=== PATIENT | female | born 1935 | race Caucasian/White ===

== ENCOUNTER 2017-03-16 09:37 | Emergency (ER) | payer MEDICARE, OTHER ==
[2017-03-16] MEDS ORDERED: ALPR0.25 (09:53)
[2017-03-16] MEDS ORDERED: NS 1,000 ML IV SCH (10:03)
[2017-03-16] MEDS ORDERED: NS 500 ML IV ONE (10:15)
[2017-03-16 10:38] LABS: BASO % 0.4 % (0.0-1.0); EOS # 0.1 K/mm3 (0.0-0.50); EOS % 1.4 % (0.0-3.0); LARGE UNSTAINED CELL # 0.1 K/mm3 (0.0-0.4); LARGE UNSTAINED CELL % 1.5 % (0.0-4.0); LYMPH % 21.8 % (24.0-44.0); MEAN CORPUSCULAR HGB CONC 33.6 g/dl (32.0-36.5); MEAN CORPUSCULAR VOLUME 92.2 fl (80.0-96.0); MONO # 0.4 K/mm3 (0.0-0.8); MONO % 4.8 % (0.0-5.0); NEUTROPHILS # 6.5 K/mm3 (1.8-7.7); NEUTROPHILS % 70.1 % (36.0-66.0); PLATELET COUNT, AUTOMATED 307 k/mm3 (150-450); RED CELL DISTRIBUTION WIDTH 13.5 % (11.5-14.5); WHITE BLOOD COUNT 9.3 K/mm3 (4.0-10.0)
[2017-03-16 11:04] LABS: ALBUMIN 3.6 GM/DL (3.2-5.2); ALBUMIN/GLOBULIN RATIO 0.97 (1.00-1.93); ALKALINE PHOSPHATASE 108 U/L (45-117); ALT/SGPT 22 U/L (12-78); ANION GAP 8 MEQ/L (8-16); AST/SGOT 14 U/L (15-37); BILIRUBIN,DIRECT 0.1 MG/DL (0.0-0.2); BILIRUBIN,TOTAL 0.6 MG/DL (0.2-1.0); BLOOD UREA NITROGEN 5 MG/DL (7-18); CALCIUM LEVEL 8.7 MG/DL (8.8-10.2); CARBON DIOXIDE LEVEL 27 MEQ/L (21-32); CHLORIDE LEVEL 107 MEQ/L (98-107); CREATININE FOR GFR 0.57 MG/DL (0.55-1.02); GLOMERULAR FILTRATION RATE > 60.0 (>32); GLUCOSE, FASTING 92 MG/DL (83-110); SODIUM LEVEL 142 MEQ/L (136-145); TOTAL PROTEIN 7.3 GM/DL (6.4-8.2)
[2017-03-16 11:31] VITALS: BP 141/81
--- NOTE | 2017-03-16 11:45 | REP ---
ABDOMINAL SERIES: Three views. HISTORY: Abdominal pain. COMPARISON STUDY: June 04, 2007 FINDINGS: Upright chest radiograph demonstrates EKG monitoring electrodes. Heart is not enlarged. The aorta is calcific and a little tortuous. Pleural angles are sharp. No infiltrate is seen. No free subdiaphragmatic air is seen. Supine and erect views of the abdomen show two or three right colonic air fluid levels. There is some air in the rectum and in the left colon. There are air-filled nondilated loops of small bowel in the central abdomen. These are nonspecific. Vascular calcification is noted. There is diffuse osteopenia. No mass organomegaly is seen. IMPRESSION: Nonspecific small bowel loops in the central abdomen. Right colonic air fluid levels. No evidence of obstruction. Question ileus versus enteritis. Signed by Brian Raphael MD 03/16/2017 02:06 P
--- NOTE | 2017-03-16 15:15 | ECGEPIP ---
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
== END 2017-03-16 12:08 | disposition home or self-care (01) ==
LOC: EDBD 09:37 → M ED 11:14
DX: R19.7 Diarrhea, unspecified (principal); E86.0 Dehydration; Z79.899 Other long term (current) drug therapy; Z87.442 Personal history of urinary calculi; F41.9 Anxiety disorder, unspecified

== ENCOUNTER → 2022-02-17 | Outpatient (REF) | payer MEDICARE, OTHER ==
[~2022-02-17] MED LIST: ALPR0.25
[2022-02-17 18:39] LABS: PERCENT SATURATION 4.3 % (13.2-45.0)
== END ==
LOC: M LAB REF 17:01
PROVIDERS: ATTEND Nurse Practitioner Adult Health
DX: D64.9 Anemia, unspecified (principal)

== ENCOUNTER → 2023-04-05 | Outpatient (REF) | payer MEDICARE, OTHER ==
[~2023-04-05] MED LIST changes: +FERR325T3 PO; +PAXI30TA12 PO
== END ==
LOC: M LAB REF 16:10
PROVIDERS: ATTEND Internal Medicine
DX: N39.0 Urinary tract infection, site not specified (principal)

== ENCOUNTER 2023-05-12 10:55 | Inpatient (IN) | payer MEDICARE, OTHER ==
[~2023-05-12] VITALS: Ht 154.9 cm; Wt 57.3 kg
[2023-05-12] MEDS ORDERED: ONDANSETRON 4MG 2ML VIAL IV ONE (11:30)
[2023-05-12] MEDS ORDERED: NS 1,000 ML IV SCH (11:30)
[2023-05-12] MEDS ORDERED: MORPHINE 2 MG/ML 1ML VIAL IV ONE (11:30)
[2023-05-12 11:58] LABS: VENOUS BASE EXCESS -4.7 (-2.0-2.0); VENOUS HCO3 18.6 MMOL/L (23.0-27.0); VENOUS O2 SATURATION 97.3 % (60.0-80.0); VENOUS PARTIAL PRESSURE CO2 27.5 mmHg (38.0-50.0); VENOUS PARTIAL PRESSURE O2 93.6 mmHg (30.0-50.0); VENOUS PH 7.447 UNITS (7.330-7.430); VENOUS STANDARD HCO3 20.6 MMOL/L; VENOUS TOTAL CO2 19.4 MMOL/L (24.0-28.0)
[2023-05-12 12:14] LABS: BASO % 0.1 % (0.0-1.0); HEMATOCRIT 24.8 % (36.0-47.0); HEMOGLOBIN 7.8 g/dl (12.0-15.5); LYMPH % 6.2 % (24.0-44.0); MEAN CORPUSCULAR HEMOGLOBIN 24.3 pg (27.0-33.0); MEAN CORPUSCULAR HGB CONC 31.5 g/dl (32.0-36.5); MEAN CORPUSCULAR VOLUME 77.3 fl (80.0-96.0); MONO # 0.9 10^3/uL (0.0-0.8); MONO % 5.5 % (2.0-8.0); NEUTROPHILS % 87.6 % (36.0-66.0); PLATELET COUNT, AUTOMATED 383 10^3/uL (150-450); RED BLOOD COUNT 3.21 10^6/uL (4.00-5.40); WHITE BLOOD COUNT 15.9 10^3/uL (4.0-10.0)
[2023-05-12 12:34] LABS: ALBUMIN 3.3 G/DL (3.2-5.2); ALKALINE PHOSPHATASE 94 U/L (46-116); ALT/SGPT 20 U/L (7.0-40); AST/SGOT 52 U/L (<34); BILIRUBIN,DIRECT 0.3 MG/DL (<0.4); BILIRUBIN,TOTAL 0.8 MG/DL (0.3-1.2); BLOOD UREA NITROGEN 20 MG/DL (9-23); CALCIUM LEVEL 8.9 MG/DL (8.3-10.6); CARBON DIOXIDE LEVEL 23 MMOL/L (20-31); CHLORIDE LEVEL 103 MMOL/L (98-107); CREATININE FOR GFR 0.38 MG/DL (0.55-1.30); GLOMERULAR FILTRATION RATE > 60.0 (>32); GLUCOSE, FASTING 116 MG/DL (74-106); SODIUM LEVEL 136 MMOL/L (136-145); TOTAL PROTEIN 6.3 G/DL (5.7-8.2)
[2023-05-12 12:36] LABS: THYROID STIMULATING HORMONE 1.397 uIU/ML (0.55-4.78)
[2023-05-12 13:08] LABS: OSMOLALITY SERUM 284 MOSM/KG (280-301)
[2023-05-12] MEDS ORDERED: MED REC IN PROGRESS XX SCH (17:20)
[2023-05-12 17:37] LABS: CPK CREATINE PHOSPHOKINASE 1669 U/L (34-145)
[2023-05-12] MEDS ORDERED: HOME MED LIST COMPLETE! XX SCH (17:40)
[2023-05-12] MEDS ORDERED: ALIG4CAP PO (17:40)
[2023-05-12] MEDS ORDERED: MIRT1TAB PO (17:40)
[2023-05-12] MEDS ORDERED: MELA10CA PO (17:40)
[2023-05-12] MEDS ORDERED: ACETAMINOPHEN 650MG SUPP PR ONE (18:50)
[2023-05-12] MEDS ORDERED: ONDANSETRON 4MG 2ML VIAL IV PRN (20:35)
[2023-05-12] MEDS: LR 1,000 ML IV SCH (22:38)
[2023-05-12] MEDS: HEPARIN SOD (PORCINE) 5000UNITS/ML 1ML VIAL/SYRINGE SC SCH (22:38)
[2023-05-13] VITALS (12 sets, daily range): BP systolic 107–136; BP diastolic 40–62; TEMP 96.9–98.9; O2SAT 93–98
[2023-05-13] MEDS: HYDROMORPHONE HCL 0.5 MG/ 0.5 ML SYRINGE IV PRN (02:15)
[2023-05-13] MEDS: LR 1,000 ML IV SCH ×2 (05:46→15:16)
[2023-05-13 07:20] LABS: BLOOD UREA NITROGEN 15 MG/DL (9-23); CARBON DIOXIDE LEVEL 23 MMOL/L (20-31); CHLORIDE LEVEL 108 MMOL/L (98-107); CREATININE FOR GFR 0.37 MG/DL (0.55-1.30); GLOMERULAR FILTRATION RATE > 60.0 (>32); GLUCOSE, FASTING 103 MG/DL (74-106); POTASSIUM SERUM 3.4 MMOL/L (3.5-5.1); SODIUM LEVEL 141 MMOL/L (136-145)
[2023-05-13] MEDS ORDERED: POTASSIUM CHLORIDE 10MEQ SR TABLET PO ONE (07:35)
[2023-05-13 07:56] LABS: BASO % 0.2 % (0.0-1.0); EOS % 0.1 % (0.0-3.0); LYMPH # 1.6 10^3/uL (1.5-5.0); LYMPH % 10.5 % (24.0-44.0); MEAN CORPUSCULAR HEMOGLOBIN 24.2 pg (27.0-33.0); MEAN CORPUSCULAR HGB CONC 30.8 g/dl (32.0-36.5); MEAN CORPUSCULAR VOLUME 78.5 fl (80.0-96.0); MONO # 1.5 10^3/uL (0.0-0.8); MONO % 9.9 % (2.0-8.0); NEUTROPHILS # 12.1 10^3/uL (1.5-8.5); NEUTROPHILS % 78.8 % (36.0-66.0); PLATELET COUNT, AUTOMATED 340 10^3/uL (150-450); RED BLOOD COUNT 2.65 10^6/uL (4.00-5.40); WHITE BLOOD COUNT 15.3 10^3/uL (4.0-10.0)
[2023-05-13 08:05] LABS: HEMATOCRIT 20.8 % (36.0-47.0); HEMOGLOBIN 6.4 g/dl (12.0-15.5)
[2023-05-13] MEDS ORDERED: MEPERIDINE 25 MG/ML 1ML VIAL IV PRN ×2 (08:05→16:25)
[2023-05-13] MEDS ORDERED: ONDANSETRON 4MG 2ML VIAL IV PRN ×2 (08:05→16:25)
[2023-05-13] MEDS ORDERED: oxyCODONE 5MG TAB PO PRN ×2 (08:05→16:25)
[2023-05-13] MEDS ORDERED: HYDROMORPHONE HCL 0.5 MG/ 0.5 ML SYRINGE IV PRN ×2 (08:05→16:25)
[2023-05-13] MEDS ORDERED: LR 1,000 ML IV SCH ×2 (08:05→16:25)
[2023-05-13] MEDS ORDERED: fentaNYL 100 MCG/2 ML INJECTION IV PRN ×2 (08:05→16:25)
[2023-05-13 08:15] LABS: CPK CREATINE PHOSPHOKINASE 2621 U/L (34-145)
[2023-05-13] MEDS: HEPARIN SOD (PORCINE) 5000UNITS/ML 1ML VIAL/SYRINGE SC SCH ×2 (09:00→22:23)
[2023-05-13 09:49] LABS: IRON (FE) 13 UG/DL (50-170); PERCENT SATURATION 4.2 % (13.2-45.0); TOTAL IRON BINDING CAPACITY 313 UG/DL (250-425)
[2023-05-13 09:52] LABS: FERRITIN 18.7 NG/ML (7.3-270.7); FOLATE 14.1 NG/ML (>5.4); VITAMIN B12 LEVEL 321 PG/ML (211-911)
[2023-05-13] MEDS: PARoxetine 10MG TABLET PO SCH (11:23)
[2023-05-13 15:53] LABS: HEMATOCRIT 25.8 % (36.0-47.0); HEMOGLOBIN 8.1 g/dl (12.0-15.5)
[2023-05-13] MEDS ORDERED: TRANEXAMIC ACID 100 MG/ML 10ML VIAL As Ordered ONE (16:27)
[2023-05-13] MEDS ORDERED: ceFAZolin 2 GM/D5W 50 ML IV BAG As Ordered ONE (16:28)
[2023-05-13] MEDS ORDERED: LIDOCAINE 2% 100MG/5ML SDV (FOR ANES.) As Ordered ONE (17:22)
[2023-05-13] MEDS ORDERED: propofoL 200 MG/20 ML VIAL As Ordered ONE (17:22)
[2023-05-13] MEDS ORDERED: GLYCOPYRROLATE INJ 0.2 MG/ML 2 ML VIAL As Ordered ONE (17:22)
[2023-05-13] MEDS ORDERED: ONDANSETRON 4MG 2ML VIAL As Ordered ONE (17:22)
[2023-05-13] MEDS ORDERED: fentaNYL 100 MCG/2 ML INJECTION As Ordered ONE ×2 (17:25→18:25)
[2023-05-13] MEDS ORDERED: ROCURONIUM BROMIDE 50MG/5ML VIAL As Ordered ONE (17:46)
[2023-05-13] MEDS ORDERED: ACETAMINOPHEN 1000MG 100ML IV BAG As Ordered ONE (18:07)
[2023-05-13] MEDS ORDERED: VANCOMYCIN 1000MG/20ML VIAL As Ordered ONE (19:25)
[2023-05-13] MEDS: NICOTINE 14 MG/24 HR TRANSDERMAL TD SCH (22:22)
[2023-05-14] VITALS (13 sets, daily range): BP systolic 101–127; BP diastolic 53–61; TEMP 96.6–99.9; O2SAT 93–98
[2023-05-14] MEDS: LR 1,000 ML IV SCH ×4 (04:16→21:15)
[2023-05-14 05:17] LABS: BASO % 0.1 % (0.0-1.0); HEMATOCRIT 22.5 % (36.0-47.0); LYMPH # 1.4 10^3/uL (1.5-5.0); LYMPH % 8.1 % (24.0-44.0); MEAN CORPUSCULAR HEMOGLOBIN 25.4 pg (27.0-33.0); MEAN CORPUSCULAR HGB CONC 31.1 g/dl (32.0-36.5); MEAN CORPUSCULAR VOLUME 81.5 fl (80.0-96.0); MONO # 1.1 10^3/uL (0.0-0.8); MONO % 6.4 % (2.0-8.0); NEUTROPHILS # 14.3 10^3/uL (1.5-8.5); NEUTROPHILS % 84.9 % (36.0-66.0); PLATELET COUNT, AUTOMATED 293 10^3/uL (150-450); RED BLOOD COUNT 2.76 10^6/uL (4.00-5.40); WHITE BLOOD COUNT 16.9 10^3/uL (4.0-10.0)
[2023-05-14] MEDS: ceFAZolin SOD 2 GM in IV 1 EA IV SCH ×3 (05:47→20:13)
[2023-05-14 05:49] LABS: BLOOD UREA NITROGEN 17 MG/DL (9-23); CALCIUM LEVEL 7.8 MG/DL (8.3-10.6); CARBON DIOXIDE LEVEL 25 MMOL/L (20-31); CHLORIDE LEVEL 108 MMOL/L (98-107); CPK CREATINE PHOSPHOKINASE 3045 U/L (34-145); CREATININE FOR GFR 0.44 MG/DL (0.55-1.30); GLOMERULAR FILTRATION RATE > 60.0 (>32); GLUCOSE, FASTING 105 MG/DL (74-106); MAGNESIUM LEVEL 1.8 MG/DL (1.8-2.4); POTASSIUM SERUM 4.5 MMOL/L (3.5-5.1); SODIUM LEVEL 139 MMOL/L (136-145)
[2023-05-14] MEDS: HEPARIN SOD (PORCINE) 5000UNITS/ML 1ML VIAL/SYRINGE SC SCH ×2 (09:00→19:16)
[2023-05-14] MEDS: FERROUS SULFATE 325MG TAB PO SCH (09:59)
[2023-05-14] MEDS: PARoxetine 10MG TABLET PO SCH (09:59)
[2023-05-14] MEDS: NICOTINE 14 MG/24 HR TRANSDERMAL TD SCH (09:59)
[2023-05-14] MEDS: HYDROMORPHONE HCL 0.5 MG/ 0.5 ML SYRINGE IV PRN (13:15)
[2023-05-14 14:23] LABS: HEMATOCRIT 23.9 % (36.0-47.0); HEMOGLOBIN 7.7 g/dl (12.0-15.5)
[2023-05-14] MEDS: ACETAMINOPHEN TAB 650MG DOSE (2X325MG) PO PRN (20:15)
[2023-05-15 04:02] VITALS: BP 109/57; TEMP 97.2; O2SAT 97
[2023-05-15] MEDS: LR 1,000 ML IV SCH (04:44)
[2023-05-15 06:23] LABS: BASO % 0.3 % (0.0-1.0); EOS # 0.1 10^3/uL (0.0-0.5); EOS % 0.7 % (0.0-3.0); HEMATOCRIT 23.1 % (36.0-47.0); HEMOGLOBIN 7.3 g/dl (12.0-15.5); LYMPH # 2.2 10^3/uL (1.5-5.0); LYMPH % 18.5 % (24.0-44.0); MEAN CORPUSCULAR HEMOGLOBIN 25.8 pg (27.0-33.0); MEAN CORPUSCULAR HGB CONC 31.6 g/dl (32.0-36.5); MEAN CORPUSCULAR VOLUME 81.6 fl (80.0-96.0); MONO % 8.2 % (2.0-8.0); NEUTROPHILS # 8.4 10^3/uL (1.5-8.5); NEUTROPHILS % 71.8 % (36.0-66.0); PLATELET COUNT, AUTOMATED 260 10^3/uL (150-450); RED BLOOD COUNT 2.83 10^6/uL (4.00-5.40); WHITE BLOOD COUNT 11.7 10^3/uL (4.0-10.0)
[2023-05-15 06:44] LABS: BLOOD UREA NITROGEN 10 MG/DL (9-23); CALCIUM LEVEL 7.5 MG/DL (8.3-10.6); CARBON DIOXIDE LEVEL 27 MMOL/L (20-31); CHLORIDE LEVEL 105 MMOL/L (98-107); CREATININE FOR GFR 0.35 MG/DL (0.55-1.30); GLOMERULAR FILTRATION RATE > 60.0 (>32); GLUCOSE, FASTING 89 MG/DL (74-106); MAGNESIUM LEVEL 1.5 MG/DL (1.8-2.4); POTASSIUM SERUM 3.7 MMOL/L (3.5-5.1); SODIUM LEVEL 140 MMOL/L (136-145)
[2023-05-15 06:56] LABS: CPK CREATINE PHOSPHOKINASE 1742 U/L (34-145)
[2023-05-15 07:50] VITALS: BP 111/55; TEMP 97.8; O2SAT 96
[2023-05-15] MEDS ORDERED: MAGNESIUM OXIDE 400MG TAB (MAG-OX) PO ONE (08:00)
[2023-05-15] MEDS: HEPARIN SOD (PORCINE) 5000UNITS/ML 1ML VIAL/SYRINGE SC SCH (08:49)
[2023-05-15] MEDS ORDERED: SENOKOT S TAB PO SCH (09:00)
[2023-05-15] MEDS ORDERED: FERR1TAB8 PO (10:23)
[2023-05-15 10:48] LABS: HEMATOCRIT 24.1 % (36.0-47.0); HEMOGLOBIN 7.8 g/dl (12.0-15.5)
[2023-05-15] MEDS: NICOTINE 14 MG/24 HR TRANSDERMAL TD SCH (10:48)
[2023-05-15] MEDS: FERROUS SULFATE 325MG TAB PO SCH (11:04)
[2023-05-15] MEDS: PARoxetine 10MG TABLET PO SCH (11:04)
[2023-05-15 11:18] VITALS: BP 107/59; TEMP 97.4
[2023-05-15] MEDS: ACETAMINOPHEN TAB 650MG DOSE (2X325MG) PO PRN (11:51)
== END 2023-05-15 12:01 | DRG 481 ==
LOC: EDBD 10:55 → M ED 10:55 → M ED INP 20:33 → M PCU 05-13 00:40
PROVIDERS: ADMIT Internal Medicine; ATTEND Family Medicine
PROC: 30233N1 Transfusion of Nonautologous Red Blood Cells into Peripheral Vein, Percutaneous Approach (ICD-10-PCS; 2023-05-13)
PROC: 0QS734Z Reposition Left Upper Femur with Internal Fixation Device, Percutaneous Approach (ICD-10-PCS; principal; 2023-05-13 13:00)
DX: S72.142A Displaced intertrochanteric fracture of left femur, initial encounter for closed fracture (principal); G93.40 Encephalopathy, unspecified; M62.82 Rhabdomyolysis; D62 Acute posthemorrhagic anemia; F03.90 Unspecified dementia, unspecified severity, without behavioral disturbance, psychotic disturbance, mood disturbance, and anxiety; F41.9 Anxiety disorder, unspecified; F32.A Depression, unspecified; Z79.899 Other long term (current) drug therapy; W18.30XA Fall on same level, unspecified, initial encounter; Y92.009 Unspecified place in unspecified non-institutional (private) residence as the place of occurrence of the external cause

== ENCOUNTER 2023-05-14 10:13 | Inpatient (IN) | payer MEDICARE ==
[~2023-05-14] VITALS: Ht 154.9 cm; Wt 46.3 kg
[~2023-05-14 10:13] MED LIST changes: +ALIG4CAP PO; +MELA10CA PO; +MIRT1TAB PO
[2023-05-15] MEDS ORDERED: FERR1TAB8 PO (10:23)
[2023-05-15 12:05] VITALS: BP 125/58; TEMP 98.6; O2SAT 94
[2023-05-15 14:00] VITALS: BP 130/62; TEMP 98.6; O2SAT 95
[2023-05-15] MEDS ORDERED: oxyCODONE 5MG TAB PO STA (14:57)
[2023-05-15] MEDS: ACETAMINOPHEN 500 MG TAB PO SCH ×2 (16:00→20:45)
[2023-05-15] MEDS ORDERED: BISACODYL 10MG SUPP PR PRN (16:05)
[2023-05-15] MEDS ORDERED: oxyCODONE 5MG TAB PO PRN (16:05)
[2023-05-15] MEDS ORDERED: ONDANSETRON 4MG TAB PO PRN (16:05)
[2023-05-15 20:00] VITALS: BP 112/58; TEMP 98.4; O2SAT 85
[2023-05-15 20:15] VITALS: O2SAT 93
[2023-05-15] MEDS: SENNA 8.6 MG TAB (SENOKOT) PO SCH (20:39)
[2023-05-15] MEDS: DOCUSATE SODIUM 100MG CAPSULE PO SCH (20:39)
[2023-05-15] MEDS: REMEDY PHYTOPLEX Z-GUARD PASTE 113GM TUBE (FROM STOREROOM PRODUCT) TOP SCH (20:45)
[2023-05-15] MEDS: DICLOFENAC EPOLAMINE 1.3% PATCH TOP SCH (20:45)
[2023-05-15] MEDS ORDERED: MIRTAZAPINE 7.5MG PER 1/2 TABLET PO SCH (21:00)
[2023-05-16 05:49] LABS: BASO % 0.3 % (0.0-1.0); EOS # 0.1 10^3/uL (0.0-0.5); EOS % 0.7 % (0.0-3.0); HEMATOCRIT 25.5 % (36.0-47.0); HEMOGLOBIN 8.1 g/dl (12.0-15.5); LYMPH # 1.9 10^3/uL (1.5-5.0); MEAN CORPUSCULAR HGB CONC 31.8 g/dl (32.0-36.5); MONO # 0.9 10^3/uL (0.0-0.8); MONO % 8.1 % (2.0-8.0); NEUTROPHILS # 8.2 10^3/uL (1.5-8.5); NEUTROPHILS % 73.2 % (36.0-66.0); PLATELET COUNT, AUTOMATED 311 10^3/uL (150-450); RED BLOOD COUNT 3.11 10^6/uL (4.00-5.40); WHITE BLOOD COUNT 11.1 10^3/uL (4.0-10.0)
[2023-05-16] MEDS: DICLOFENAC EPOLAMINE 1.3% PATCH TOP SCH ×2 (05:57→17:53)
[2023-05-16 06:00] VITALS: BP 130/85; TEMP 98; O2SAT 91
[2023-05-16 06:11] LABS: ALBUMIN 2.2 G/DL (3.2-5.2); ALKALINE PHOSPHATASE 70 U/L (46-116); ALT/SGPT 37 U/L (7.0-40); AST/SGOT 96 U/L (<34); BILIRUBIN,TOTAL 1.1 MG/DL (0.3-1.2); BLOOD UREA NITROGEN 6 MG/DL (9-23); CALCIUM LEVEL 7.5 MG/DL (8.3-10.6); CARBON DIOXIDE LEVEL 29 MMOL/L (20-31); CHLORIDE LEVEL 102 MMOL/L (98-107); CREATININE FOR GFR 0.34 MG/DL (0.55-1.30); GLOMERULAR FILTRATION RATE > 60.0 (>32); GLUCOSE, FASTING 87 MG/DL (74-106); POTASSIUM SERUM 3.6 MMOL/L (3.5-5.1); SODIUM LEVEL 139 MMOL/L (136-145); TOTAL PROTEIN 4.7 G/DL (5.7-8.2)
[2023-05-16] MEDS ORDERED: HOME MED LIST COMPLETE! XX SCH (07:35)
[2023-05-16] MEDS: NICOTINE 14 MG/24 HR TRANSDERMAL TD SCH (09:00)
[2023-05-16] MEDS: REMEDY PHYTOPLEX Z-GUARD PASTE 113GM TUBE (FROM STOREROOM PRODUCT) TOP SCH ×3 (09:00→21:00)
[2023-05-16] MEDS: FERROUS SULFATE 325MG TAB PO SCH (09:31)
[2023-05-16] MEDS: PARoxetine 10MG TABLET PO SCH (09:31)
[2023-05-16] MEDS: DOCUSATE SODIUM 100MG CAPSULE PO SCH ×2 (09:31→21:05)
[2023-05-16] MEDS: ENOXAPARIN 40MG/0.4ML SYRINGE (J1650 PER 10MG) SC SCH (09:32)
[2023-05-16] MEDS: ACETAMINOPHEN 500 MG TAB PO SCH ×3 (09:32→21:05)
[2023-05-16] MEDS: COMBIVENT RESPIMAT 100-20MCG INHALER 4GM INH SCH ×2 (13:07→20:16)
[2023-05-16 14:00] VITALS: BP 115/57; TEMP 98.3; O2SAT 90
[2023-05-16] MEDS ORDERED: oxyCODONE 5MG TAB PO PRN (15:15)
[2023-05-16] MEDS ORDERED: PILL CUTTER 1 EACH XX PRN (15:30)
[2023-05-16] MEDS: CEFEPIME HCL 2 GM in D5W MINI-BAG PLUS 50 ML IV SCH (16:41)
[2023-05-16] MEDS: LACTOBACILLUS ACIDOPHILUS CAP (BACID) PO SCH (17:53)
[2023-05-16 20:00] VITALS: BP 110/52; TEMP 99; O2SAT 91
[2023-05-16] MEDS: SENNA 8.6 MG TAB (SENOKOT) PO SCH (21:04)
[2023-05-17] MEDS: CEFEPIME HCL 2 GM in D5W MINI-BAG PLUS 50 ML IV SCH ×2 (00:17→09:07)
[2023-05-17 06:00] VITALS: BP 147/66; TEMP 98.1; O2SAT 91
[2023-05-17] MEDS: DICLOFENAC EPOLAMINE 1.3% PATCH TOP SCH ×2 (06:50→18:27)
[2023-05-17] MEDS: COMBIVENT RESPIMAT 100-20MCG INHALER 4GM INH SCH ×3 (07:00→19:48)
[2023-05-17 07:17] LABS: BASO % 0.2 % (0.0-1.0); EOS # 0.1 10^3/uL (0.0-0.5); HEMATOCRIT 25.2 % (36.0-47.0); HEMOGLOBIN 8.2 g/dl (12.0-15.5); LYMPH # 1.6 10^3/uL (1.5-5.0); LYMPH % 11.5 % (24.0-44.0); MEAN CORPUSCULAR HEMOGLOBIN 26.5 pg (27.0-33.0); MEAN CORPUSCULAR HGB CONC 32.5 g/dl (32.0-36.5); MEAN CORPUSCULAR VOLUME 81.3 fl (80.0-96.0); MONO % 6.9 % (2.0-8.0); NEUTROPHILS % 79.7 % (36.0-66.0); PLATELET COUNT, AUTOMATED 327 10^3/uL (150-450); WHITE BLOOD COUNT 13.8 10^3/uL (4.0-10.0)
[2023-05-17] MEDS: NICOTINE 14 MG/24 HR TRANSDERMAL TD SCH (09:00)
[2023-05-17] MEDS: DOCUSATE SODIUM 100MG CAPSULE PO SCH ×3 (09:00→20:21)
[2023-05-17] MEDS: REMEDY PHYTOPLEX Z-GUARD PASTE 113GM TUBE (FROM STOREROOM PRODUCT) TOP SCH ×3 (09:00→20:23)
[2023-05-17] MEDS: FERROUS SULFATE 325MG TAB PO SCH (09:07)
[2023-05-17] MEDS: LACTOBACILLUS ACIDOPHILUS CAP (BACID) PO SCH ×2 (09:08→18:26)
[2023-05-17] MEDS: PARoxetine 10MG TABLET PO SCH (09:08)
[2023-05-17] MEDS: ENOXAPARIN 40MG/0.4ML SYRINGE (J1650 PER 10MG) SC SCH (09:08)
[2023-05-17] MEDS: ACETAMINOPHEN 500 MG TAB PO SCH ×4 (09:08→23:08)
[2023-05-17] MEDS: LIDOCAINE 5% (LIDODERM) PATCH TD SCH (09:09)
[2023-05-17 14:00] VITALS: BP 127/61; TEMP 98.3; O2SAT 94
[2023-05-17] MEDS: PIPERACILLIN/TAZOBACTAM SOD 4.5 GM in D5W MINI-BAG PLUS 50 ML IV SCH ×2 (14:13→20:20)
[2023-05-17 20:00] VITALS: BP 123/60; TEMP 97.8; O2SAT 94
[2023-05-17] MEDS ORDERED: CEFEPIME HCL 2 GM in D5W MINI-BAG PLUS 50 ML IV SCH (20:00)
[2023-05-17] MEDS: SENNA 8.6 MG TAB (SENOKOT) PO SCH (20:22)
[2023-05-18] MEDS: PIPERACILLIN/TAZOBACTAM SOD 4.5 GM in D5W MINI-BAG PLUS 50 ML IV SCH ×4 (01:29→19:35)
[2023-05-18] MEDS: DICLOFENAC EPOLAMINE 1.3% PATCH TOP SCH ×2 (05:20→17:19)
[2023-05-18 05:52] LABS: BASO # 0.1 10^3/uL (0.0-0.2); BASO % 0.4 % (0.0-1.0); EOS # 0.3 10^3/uL (0.0-0.5); EOS % 2.6 % (0.0-3.0); HEMATOCRIT 26.1 % (36.0-47.0); HEMOGLOBIN 8.3 g/dl (12.0-15.5); LYMPH # 1.8 10^3/uL (1.5-5.0); LYMPH % 13.9 % (24.0-44.0); MEAN CORPUSCULAR HEMOGLOBIN 26.3 pg (27.0-33.0); MEAN CORPUSCULAR HGB CONC 31.8 g/dl (32.0-36.5); MEAN CORPUSCULAR VOLUME 82.6 fl (80.0-96.0); MONO % 7.7 % (2.0-8.0); NEUTROPHILS # 9.6 10^3/uL (1.5-8.5); NEUTROPHILS % 74.5 % (36.0-66.0); PLATELET COUNT, AUTOMATED 370 10^3/uL (150-450); RED BLOOD COUNT 3.16 10^6/uL (4.00-5.40); WHITE BLOOD COUNT 12.9 10^3/uL (4.0-10.0)
[2023-05-18 06:00] VITALS: BP 144/65; TEMP 97.7; O2SAT 94
[2023-05-18] MEDS: IBUPROFEN 400MG TAB PO PRN ×2 (06:17→14:58)
[2023-05-18 06:20] LABS: BLOOD UREA NITROGEN 8 MG/DL (9-23); CALCIUM LEVEL 7.5 MG/DL (8.3-10.6); CARBON DIOXIDE LEVEL 26 MMOL/L (20-31); CHLORIDE LEVEL 102 MMOL/L (98-107); CREATININE FOR GFR 0.38 MG/DL (0.55-1.30); GLOMERULAR FILTRATION RATE > 60.0 (>32); GLUCOSE, FASTING 91 MG/DL (74-106); POTASSIUM SERUM 3.3 MMOL/L (3.5-5.1); SODIUM LEVEL 137 MMOL/L (136-145)
[2023-05-18] MEDS: COMBIVENT RESPIMAT 100-20MCG INHALER 4GM INH SCH ×3 (06:53→19:21)
[2023-05-18] MEDS: REMEDY PHYTOPLEX Z-GUARD PASTE 113GM TUBE (FROM STOREROOM PRODUCT) TOP SCH ×3 (07:18→19:36)
[2023-05-18] MEDS: DOCUSATE SODIUM 100MG CAPSULE PO SCH ×2 (07:18→18:59)
[2023-05-18] MEDS: NICOTINE 14 MG/24 HR TRANSDERMAL TD SCH (07:18)
[2023-05-18] MEDS: ENOXAPARIN 40MG/0.4ML SYRINGE (J1650 PER 10MG) SC SCH (07:24)
[2023-05-18] MEDS: FERROUS SULFATE 325MG TAB PO SCH (07:24)
[2023-05-18] MEDS: LIDOCAINE 5% (LIDODERM) PATCH TD SCH (07:24)
[2023-05-18] MEDS: LACTOBACILLUS ACIDOPHILUS CAP (BACID) PO SCH ×2 (07:24→17:19)
[2023-05-18] MEDS: ACETAMINOPHEN 500 MG TAB PO SCH ×2 (07:24→19:34)
[2023-05-18] MEDS: MODAFINIL 100 MG TABLET PO SCH (07:25)
[2023-05-18] MEDS: PARoxetine 10MG TABLET PO SCH (07:25)
[2023-05-18] MEDS ORDERED: oxyCODONE 5MG TAB PO ONE (09:45)
[2023-05-18 14:00] VITALS: BP 122/57; TEMP 98.5; O2SAT 97
[2023-05-18] MEDS: SENNA 8.6 MG TAB (SENOKOT) PO SCH (18:59)
[2023-05-18 20:00] VITALS: BP 142/64; TEMP 98.2; O2SAT 94
[2023-05-19] MEDS: PIPERACILLIN/TAZOBACTAM SOD 4.5 GM in D5W MINI-BAG PLUS 50 ML IV SCH ×4 (01:31→19:32)
[2023-05-19] MEDS: DICLOFENAC EPOLAMINE 1.3% PATCH TOP SCH ×2 (05:26→17:05)
[2023-05-19 06:00] VITALS: BP 152/66; TEMP 98.1; O2SAT 93
[2023-05-19] MEDS: DOCUSATE SODIUM 100MG CAPSULE PO SCH ×2 (08:09→18:57)
[2023-05-19] MEDS: PARoxetine 10MG TABLET PO SCH (08:16)
[2023-05-19] MEDS: MODAFINIL 100 MG TABLET PO SCH (08:16)
[2023-05-19] MEDS: ACETAMINOPHEN 500 MG TAB PO SCH ×3 (08:16→19:32)
[2023-05-19] MEDS: LACTOBACILLUS ACIDOPHILUS CAP (BACID) PO SCH ×2 (08:16→17:05)
[2023-05-19] MEDS: LIDOCAINE 5% (LIDODERM) PATCH TD SCH (08:17)
[2023-05-19] MEDS: NICOTINE 14 MG/24 HR TRANSDERMAL TD SCH (08:17)
[2023-05-19] MEDS: ENOXAPARIN 40MG/0.4ML SYRINGE (J1650 PER 10MG) SC SCH (08:17)
[2023-05-19] MEDS: REMEDY PHYTOPLEX Z-GUARD PASTE 113GM TUBE (FROM STOREROOM PRODUCT) TOP SCH ×3 (08:18→19:33)
[2023-05-19] MEDS: FERROUS SULFATE 325MG TAB PO SCH (08:18)
[2023-05-19] MEDS: COMBIVENT RESPIMAT 100-20MCG INHALER 4GM INH SCH ×3 (09:40→21:29)
[2023-05-19] MEDS ORDERED: KCL 10MEQ/100ML SWI (KRUN) 10 MEQ in IV 1 EA IV ONE ×2 (11:00→15:00)
[2023-05-19] MEDS: IBUPROFEN 400MG TAB PO PRN ×2 (11:16→22:11)
[2023-05-19 11:58] LABS: BLOOD UREA NITROGEN 11 MG/DL (9-23); CALCIUM LEVEL 7.8 MG/DL (8.3-10.6); CARBON DIOXIDE LEVEL 26 MMOL/L (20-31); CHLORIDE LEVEL 101 MMOL/L (98-107); CREATININE FOR GFR 0.41 MG/DL (0.55-1.30); GLOMERULAR FILTRATION RATE > 60.0 (>32); GLUCOSE, FASTING 112 MG/DL (74-106); MAGNESIUM LEVEL 1.7 MG/DL (1.8-2.4); POTASSIUM SERUM 3.1 MMOL/L (3.5-5.1); SODIUM LEVEL 136 MMOL/L (136-145)
[2023-05-19 14:00] VITALS: BP 110/53; TEMP 98; O2SAT 95
[2023-05-19] MEDS: SENNA 8.6 MG TAB (SENOKOT) PO SCH (18:57)
[2023-05-19 20:00] VITALS: BP 117/61; TEMP 97.8; O2SAT 98
[2023-05-20] MEDS: PIPERACILLIN/TAZOBACTAM SOD 4.5 GM in D5W MINI-BAG PLUS 50 ML IV SCH ×4 (01:29→19:55)
[2023-05-20] MEDS: DICLOFENAC EPOLAMINE 1.3% PATCH TOP SCH ×2 (05:36→17:06)
[2023-05-20 06:00] VITALS: BP 140/65; TEMP 97.7; O2SAT 96
[2023-05-20] MEDS: DOCUSATE SODIUM 100MG CAPSULE PO SCH ×2 (07:06→20:04)
[2023-05-20] MEDS: LACTOBACILLUS ACIDOPHILUS CAP (BACID) PO SCH ×2 (07:25→17:05)
[2023-05-20] MEDS: MODAFINIL 100 MG TABLET PO SCH (07:25)
[2023-05-20] MEDS: FERROUS SULFATE 325MG TAB PO SCH (07:25)
[2023-05-20] MEDS: ENOXAPARIN 40MG/0.4ML SYRINGE (J1650 PER 10MG) SC SCH (07:25)
[2023-05-20] MEDS: ACETAMINOPHEN 500 MG TAB PO SCH ×3 (07:25→20:03)
[2023-05-20] MEDS: PARoxetine 10MG TABLET PO SCH (07:26)
[2023-05-20] MEDS: LIDOCAINE 5% (LIDODERM) PATCH TD SCH (07:26)
[2023-05-20] MEDS: NICOTINE 14 MG/24 HR TRANSDERMAL TD SCH (07:31)
[2023-05-20] MEDS: COMBIVENT RESPIMAT 100-20MCG INHALER 4GM INH SCH ×3 (07:33→20:15)
[2023-05-20 07:50] LABS: BLOOD UREA NITROGEN 11 MG/DL (9-23); CALCIUM LEVEL 7.6 MG/DL (8.3-10.6); CARBON DIOXIDE LEVEL 25 MMOL/L (20-31); CHLORIDE LEVEL 100 MMOL/L (98-107); CREATININE FOR GFR 0.41 MG/DL (0.55-1.30); GLOMERULAR FILTRATION RATE > 60.0 (>32); GLUCOSE, FASTING 82 MG/DL (74-106); POTASSIUM SERUM 3.4 MMOL/L (3.5-5.1); SODIUM LEVEL 134 MMOL/L (136-145)
[2023-05-20] MEDS: REMEDY PHYTOPLEX Z-GUARD PASTE 113GM TUBE (FROM STOREROOM PRODUCT) TOP SCH ×3 (09:05→20:04)
[2023-05-20 14:00] VITALS: BP 123/57; TEMP 98; O2SAT 93
[2023-05-20] MEDS: SENNA 8.6 MG TAB (SENOKOT) PO SCH (20:04)
[2023-05-20 20:09] VITALS: BP 133/62; TEMP 98.3; O2SAT 93
[2023-05-21] MEDS: PIPERACILLIN/TAZOBACTAM SOD 4.5 GM in D5W MINI-BAG PLUS 50 ML IV SCH ×4 (02:09→20:36)
[2023-05-21 05:36] LABS: BASO # 0.1 10^3/uL (0.0-0.2); BASO % 0.4 % (0.0-1.0); EOS # 0.5 10^3/uL (0.0-0.5); EOS % 3.7 % (0.0-3.0); HEMATOCRIT 26.1 % (36.0-47.0); HEMOGLOBIN 8.2 g/dl (12.0-15.5); LYMPH % 13.6 % (24.0-44.0); MEAN CORPUSCULAR HEMOGLOBIN 26.5 pg (27.0-33.0); MEAN CORPUSCULAR HGB CONC 31.4 g/dl (32.0-36.5); MEAN CORPUSCULAR VOLUME 84.2 fl (80.0-96.0); MONO # 1.2 10^3/uL (0.0-0.8); MONO % 8.2 % (2.0-8.0); NEUTROPHILS # 10.6 10^3/uL (1.5-8.5); NEUTROPHILS % 72.6 % (36.0-66.0); PLATELET COUNT, AUTOMATED 536 10^3/uL (150-450); WHITE BLOOD COUNT 14.7 10^3/uL (4.0-10.0)
[2023-05-21 05:55] LABS: BLOOD UREA NITROGEN 8 MG/DL (9-23); CALCIUM LEVEL 7.6 MG/DL (8.3-10.6); CARBON DIOXIDE LEVEL 24 MMOL/L (20-31); CHLORIDE LEVEL 101 MMOL/L (98-107); CREATININE FOR GFR 0.38 MG/DL (0.55-1.30); GLOMERULAR FILTRATION RATE > 60.0 (>32); GLUCOSE, FASTING 92 MG/DL (74-106); POTASSIUM SERUM 3.5 MMOL/L (3.5-5.1); SODIUM LEVEL 135 MMOL/L (136-145)
[2023-05-21] MEDS: DICLOFENAC EPOLAMINE 1.3% PATCH TOP SCH ×2 (05:56→18:00)
[2023-05-21] MEDS: IBUPROFEN 400MG TAB PO PRN (05:59)
[2023-05-21 06:00] VITALS: BP 150/65; TEMP 98.9; O2SAT 93
[2023-05-21] MEDS: COMBIVENT RESPIMAT 100-20MCG INHALER 4GM INH SCH ×3 (07:20→20:39)
[2023-05-21] MEDS: DOCUSATE SODIUM 100MG CAPSULE PO SCH ×2 (09:00→20:55)
[2023-05-21] MEDS: NICOTINE 14 MG/24 HR TRANSDERMAL TD SCH (09:00)
[2023-05-21] MEDS: REMEDY PHYTOPLEX Z-GUARD PASTE 113GM TUBE (FROM STOREROOM PRODUCT) TOP SCH ×3 (09:00→20:55)
[2023-05-21] MEDS: PARoxetine 10MG TABLET PO SCH (09:17)
[2023-05-21] MEDS: ACETAMINOPHEN 500 MG TAB PO SCH ×3 (09:17→20:36)
[2023-05-21] MEDS: FERROUS SULFATE 325MG TAB PO SCH (09:17)
[2023-05-21] MEDS: ENOXAPARIN 40MG/0.4ML SYRINGE (J1650 PER 10MG) SC SCH (09:18)
[2023-05-21] MEDS: MODAFINIL 100 MG TABLET PO SCH (09:18)
[2023-05-21] MEDS: LIDOCAINE 5% (LIDODERM) PATCH TD SCH (09:18)
[2023-05-21] MEDS: LACTOBACILLUS ACIDOPHILUS CAP (BACID) PO SCH ×2 (09:18→18:10)
[2023-05-21] MEDS: POTASSIUM CHL PWD 20MEQ PACKET PO SCH (09:20)
[2023-05-21] MEDS: MAGNESIUM OXIDE 400MG TAB (MAG-OX) PO SCH ×2 (09:20→20:37)
[2023-05-21 14:00] VITALS: BP 117/55; TEMP 97.5; O2SAT 98
[2023-05-21 20:00] VITALS: BP 132/63; TEMP 97.7; O2SAT 90
[2023-05-21] MEDS: SENNA 8.6 MG TAB (SENOKOT) PO SCH (20:55)
[2023-05-21] MEDS ORDERED: SIMETHICONE 80MG CHEW TAB PO PRN (22:15)
[2023-05-22] MEDS: PIPERACILLIN/TAZOBACTAM SOD 4.5 GM in D5W MINI-BAG PLUS 50 ML IV SCH ×3 (02:24→14:09)
[2023-05-22] MEDS: DICLOFENAC EPOLAMINE 1.3% PATCH TOP SCH ×2 (05:25→18:00)
[2023-05-22 06:00] VITALS: BP 153/70; TEMP 97.6; O2SAT 95
[2023-05-22 06:07] LABS: BASO # 0.1 10^3/uL (0.0-0.2); BASO % 0.5 % (0.0-1.0); EOS # 0.6 10^3/uL (0.0-0.5); EOS % 4.3 % (0.0-3.0); HEMOGLOBIN 8.1 g/dl (12.0-15.5); LYMPH # 2.1 10^3/uL (1.5-5.0); MEAN CORPUSCULAR HEMOGLOBIN 26.4 pg (27.0-33.0); MEAN CORPUSCULAR HGB CONC 31.2 g/dl (32.0-36.5); MEAN CORPUSCULAR VOLUME 84.7 fl (80.0-96.0); MONO % 8.1 % (2.0-8.0); NEUTROPHILS # 8.9 10^3/uL (1.5-8.5); NEUTROPHILS % 69.3 % (36.0-66.0); PLATELET COUNT, AUTOMATED 589 10^3/uL (150-450); RED BLOOD COUNT 3.07 10^6/uL (4.00-5.40); WHITE BLOOD COUNT 12.9 10^3/uL (4.0-10.0)
[2023-05-22] MEDS: COMBIVENT RESPIMAT 100-20MCG INHALER 4GM INH SCH ×3 (07:36→20:01)
[2023-05-22] MEDS: REMEDY PHYTOPLEX Z-GUARD PASTE 113GM TUBE (FROM STOREROOM PRODUCT) TOP SCH (09:00)
[2023-05-22] MEDS: NICOTINE 14 MG/24 HR TRANSDERMAL TD SCH (09:00)
[2023-05-22] MEDS: LACTOBACILLUS ACIDOPHILUS CAP (BACID) PO SCH (09:07)
[2023-05-22] MEDS: POTASSIUM CHL PWD 20MEQ PACKET PO SCH (09:08)
[2023-05-22] MEDS: FERROUS SULFATE 325MG TAB PO SCH (09:08)
[2023-05-22] MEDS: MODAFINIL 100 MG TABLET PO SCH (09:08)
[2023-05-22] MEDS: PARoxetine 10MG TABLET PO SCH (09:08)
[2023-05-22] MEDS: DOCUSATE SODIUM 100MG CAPSULE PO SCH (09:08)
[2023-05-22] MEDS: MAGNESIUM OXIDE 400MG TAB (MAG-OX) PO SCH (09:08)
[2023-05-22] MEDS: ACETAMINOPHEN 500 MG TAB PO SCH ×2 (09:08→16:00)
[2023-05-22] MEDS: ENOXAPARIN 40MG/0.4ML SYRINGE (J1650 PER 10MG) SC SCH (09:09)
[2023-05-22] MEDS: LIDOCAINE 5% (LIDODERM) PATCH TD SCH (09:09)
[2023-05-22] MEDS ORDERED: oxyCODONE 5MG TAB PO PRN (13:50)
[2023-05-22 14:04] VITALS: BP 106/55; TEMP 97.5; O2SAT 95
[2023-05-22] MEDS ORDERED: MORPHINE 10MG/0.5ML ORAL CONCENTRATE SOLUTION U/D SL PRN (14:10)
[2023-05-22] MEDS ORDERED: SCOPOLAMINE 1MG TRANSDERMAL PATCH TOP PRN (14:10)
== END 2023-05-22 21:00 | disposition short-term general hospital (02) | DRG 559 ==
LOC: M PM&R 05-15 12:05
PROVIDERS: ADMIT Physical Medicine & Rehabilitation; ATTEND Physical Medicine & Rehabilitation
DX: S72.142D Displaced intertrochanteric fracture of left femur, subsequent encounter for closed fracture with routine healing (principal); G93.41 Metabolic encephalopathy; J69.0 Pneumonitis due to inhalation of food and vomit; F32.A Depression, unspecified; R13.10 Dysphagia, unspecified; J43.9 Emphysema, unspecified; R32 Unspecified urinary incontinence; F03.90 Unspecified dementia, unspecified severity, without behavioral disturbance, psychotic disturbance, mood disturbance, and anxiety; F41.9 Anxiety disorder, unspecified; D50.9 Iron deficiency anemia, unspecified; Z74.09 Other reduced mobility; Z74.1 Need for assistance with personal care; Z87.891 Personal history of nicotine dependence; Z79.899 Other long term (current) drug therapy; Z66 Do not resuscitate; E87.6 Hypokalemia; E83.42 Hypomagnesemia; Z51.5 Encounter for palliative care

== ENCOUNTER 2023-05-22 17:36 | Observation (INO) | payer MEDICARE ==
[~2023-05-22] VITALS: Ht 154.9 cm; Wt 46.3 kg
[~2023-05-22 17:36] MED LIST changes: +FERR1TAB8 PO
[2023-05-22] MEDS ORDERED: LORazepam 2 MG/ML 1ML VIAL IV PRN (22:10)
[2023-05-22] MEDS ORDERED: ONDANSETRON 4MG ORAL DISINTEGRATING TAB PO PRN (22:10)
[2023-05-22] MEDS ORDERED: SCOPOLAMINE 1MG TRANSDERMAL PATCH TOP PRN (22:10)
[2023-05-22] MEDS ORDERED: ACETAMINOPHEN TAB 650MG DOSE (2X325MG) PO PRN (22:10)
[2023-05-22] MEDS ORDERED: ONDANSETRON 4MG 2ML VIAL IV PRN (22:10)
[2023-05-22] MEDS ORDERED: MORPHINE 2 MG/ML 1ML VIAL IV PRN (22:10)
[2023-05-22] MEDS: MORPHINE 10MG/0.5ML ORAL CONCENTRATE SOLUTION U/D SL PRN (23:42)
[2023-05-23] MEDS: LORazepam 1 MG TAB PO PRN (02:31)
[2023-05-23] MEDS ORDERED: NYSTATIN 100,000 UNITS/GM TOPICAL PWD 15GM TOP PRN (07:45)
[2023-05-23] MEDS: MORPHINE 10MG/0.5ML ORAL CONCENTRATE SOLUTION U/D SL PRN (09:08)
[2023-05-24] MEDS: MORPHINE 10MG/0.5ML ORAL CONCENTRATE SOLUTION U/D SL PRN ×2 (06:27→17:36)
[2023-05-24] MEDS ORDERED: HOME MED LIST COMPLETE! XX SCH (14:45)
[2023-05-25] MEDS: MORPHINE 10MG/0.5ML ORAL CONCENTRATE SOLUTION U/D SL PRN (01:04)
[2023-05-25] MEDS: LORazepam 1 MG TAB PO PRN (01:05)
[2023-05-26] MEDS: LORazepam 1 MG TAB PO PRN ×2 (09:44→13:12)
[2023-05-26] MEDS: MORPHINE 10MG/0.5ML ORAL CONCENTRATE SOLUTION U/D SL PRN ×2 (10:50→13:12)
[2023-05-27] MEDS: MORPHINE 10MG/0.5ML ORAL CONCENTRATE SOLUTION U/D SL PRN ×2 (00:48→10:26)
[2023-05-28] MEDS: LORazepam 1 MG TAB PO PRN (03:55)
[2023-05-28] MEDS: MORPHINE 10MG/0.5ML ORAL CONCENTRATE SOLUTION U/D SL PRN (15:54)
[2023-05-29] MEDS: MORPHINE 10MG/0.5ML ORAL CONCENTRATE SOLUTION U/D SL PRN ×4 (00:30→15:13)
[2023-05-29] MEDS: LORazepam 1 MG TAB PO PRN ×2 (03:48→16:38)
[2023-05-29 12:35] LABS: HEMATOCRIT 32.2 % (36.0-47.0); HEMOGLOBIN 10.1 g/dl (12.0-15.5); MEAN CORPUSCULAR HEMOGLOBIN 27.2 pg (27.0-33.0); MEAN CORPUSCULAR HGB CONC 31.4 g/dl (32.0-36.5); MEAN CORPUSCULAR VOLUME 86.6 fl (80.0-96.0); PLATELET COUNT, AUTOMATED 669 10^3/uL (150-450); RED BLOOD COUNT 3.72 10^6/uL (4.00-5.40); WHITE BLOOD COUNT 11.1 10^3/uL (4.0-10.0)
[2023-05-29 12:49] LABS: ALBUMIN 2.7 G/DL (3.2-5.2); ALKALINE PHOSPHATASE 127 U/L (46-116); ALT/SGPT 25 U/L (7.0-40); AST/SGOT 18 U/L (<34); BILIRUBIN,TOTAL 0.6 MG/DL (0.3-1.2); BLOOD UREA NITROGEN 8 MG/DL (9-23); CARBON DIOXIDE LEVEL 28 MMOL/L (20-31); CHLORIDE LEVEL 101 MMOL/L (98-107); CREATININE FOR GFR 0.25 MG/DL (0.55-1.30); GLOMERULAR FILTRATION RATE > 60.0 (>32); GLUCOSE, FASTING 87 MG/DL (74-106); POTASSIUM SERUM 4.1 MMOL/L (3.5-5.1); SODIUM LEVEL 138 MMOL/L (136-145); TOTAL PROTEIN 5.7 G/DL (5.7-8.2)
[2023-05-30] MEDS: MORPHINE 10MG/0.5ML ORAL CONCENTRATE SOLUTION U/D SL PRN ×2 (11:03→13:35)
[2023-05-30] MEDS: LORazepam 1 MG TAB PO PRN (16:46)
[2023-05-31] MEDS: MORPHINE 10MG/0.5ML ORAL CONCENTRATE SOLUTION U/D SL PRN ×3 (09:44→17:08)
[2023-05-31] MEDS: LORazepam 1 MG TAB PO PRN (09:44)
[2023-06-01] MEDS: MORPHINE 10MG/0.5ML ORAL CONCENTRATE SOLUTION U/D SL PRN ×3 (02:23→13:34)
[2023-06-02] MEDS: MORPHINE 10MG/0.5ML ORAL CONCENTRATE SOLUTION U/D SL PRN ×2 (11:03→13:35)
[2023-06-02] MEDS: LORazepam 1 MG TAB PO PRN (13:35)
[2023-06-03] MEDS: MORPHINE 10MG/0.5ML ORAL CONCENTRATE SOLUTION U/D SL PRN ×2 (05:50→09:42)
[2023-06-04] MEDS: MORPHINE 10MG/0.5ML ORAL CONCENTRATE SOLUTION U/D SL PRN ×2 (05:34→12:40)
[2023-06-04] MEDS: LORazepam 1 MG TAB PO PRN (12:40)
[2023-06-05] MEDS ORDERED: RAMELTEON 8 MG TAB (ROZEREM) PO PRN (05:25)
[2023-06-05] MEDS: MORPHINE 10MG/0.5ML ORAL CONCENTRATE SOLUTION U/D SL PRN (10:34)
[2023-06-05] MEDS ORDERED: ATIV1TAB10 PO (10:54)
[2023-06-05] MEDS ORDERED: MORP1SOL5 PO (10:54)
[2023-06-05] MEDS ORDERED: HYOS125TA PO (10:54)
[2023-06-05] MEDS: LORazepam 1 MG TAB PO PRN (11:42)
== END 2023-06-05 12:45 | disposition hospice, home (50) ==
LOC: INTOOBSV 22:07 → M MS5PR 22:07
PROVIDERS: ADMIT Internal Medicine; ATTEND Internal Medicine
DX: Z51.5 Encounter for palliative care (principal); G93.41 Metabolic encephalopathy; F02.818 Dementia in other diseases classified elsewhere, unspecified severity, with other behavioral disturbance; M62.82 Rhabdomyolysis; R62.7 Adult failure to thrive; F41.9 Anxiety disorder, unspecified; F32.A Depression, unspecified; D72.829 Elevated white blood cell count, unspecified; E83.42 Hypomagnesemia; E87.6 Hypokalemia; Z79.899 Other long term (current) drug therapy
CPT/HCPCS: 36415; 80053; 85027; 96374; G0378